=== PATIENT | female | born 1985 | race Caucasian/White ===

== ENCOUNTER 2016-07-26 07:01 | Emergency (ER) | payer MEDICAID, OTHER ==
[~2016-07-26] VITALS: Ht 167.6 cm; Wt 60.3 kg
[~2016-07-26 07:01] MED LIST: ACHYD1T PO; AZIT-21 PO; CEPH500C PO; DEPO SHOT; FLUO20CA42 PO; HYDR1TAB PO; IBP800T PO; PHEN100T17 PO; PHEN100T26 PO; PREN1TAB39 PO; SULF1TAB38 PO; TRAM50TA2 PO; [UNRECOGNIZED DRUG - OTHER] IM; [UNRECOGNIZED DRUG - OTHER] IM
[2016-07-26] MEDS ORDERED: IBUP-1780 PO (07:22)
[2016-07-26 07:29] LABS: BILIRUBIN,URINE NEGATIVE (NEGATIVE); KETONES,URINE NEGATIVE (NEGATIVE); LEUKOCYTE ESTERASE ,URINE 1+ (NEGATIVE); NITRITE,URINE NEGATIVE (NEGATIVE); PH,URINE 6 (5-9); PROTEIN,URINE 2+ (NEGATIVE); UROBILINOGEN,URINE NORMAL (NORMAL)
--- NOTE | 2016-07-26 07:55 | ED Back Pain ---
General Chief Complaint: Back Problems Stated Complaint: KIDNEY PAIN Nursing Triage Note: Pt c/o bilat lower back pain since last night. Pt reports pain is similar to pain she experienced in past w/ kidney infection. Nursing Sepsis Screen: No Definite Risk Source of Information: Patient Exam Limitations: No Limitations History of Present Illness Time Seen by Provider: 07:50 Initial Comments The patient is a 30-year-old white female who presents with complaints of low back pain. This resembles what she previously experienced with a urinary tract infection. She has had a fever however she's had a respiratory infection as well. There appears to be some increased frequency of urination. Timing/Duration: 12-24 Hours Pain/Injury Location: Back Associated Symptoms: fever Allergies and Home Medications Allergies Coded Allergies: sulfamethoxazole (Unverified Allergy, Unknown, 07/26/16) trimethoprim (Unverified Allergy, Unknown, 07/26/16) Home Medications Ibuprofen 800 Mg Tablet, Unknown Dose PO UD PRN for PAIN, (Reported) Constitutional: see HPI EENTM: no symptoms reported Respiratory: cough Cardiovascular: no symptoms reported Gastrointestinal: no symptoms reported Musculoskeletal: no symptoms reported Skin: no symptoms reported Psychiatric/Neurological: No Symptoms Reported Past Tsidzad-Zshmsf-Ndcyur Hx Patient Social History Alcohol Use: Occasionally Uses Recreational Drug Use: No Smoking Status: Current Everyday Smoker Type Used: Cigarettes Recent Foreign Travel: No Contact w/Someone Who Travel: No Recent Infectious Disease Expo: No Recent Hopitalizations: No Immunizations Up To Date Tetanus Booster (TDap): More than 5yrs Seasonal Allergies Seasonal Allergies: No Surgeries HX Surgeries: Yes Surgeries: Appendectomy, Gallbladder Respiratory Hx Respiratory Disorders: No Cardiovascular Hx Cardiac Disorders: No Neurological Hx Neurological Disorders: Yes Neurological Disorders: Headaches /Migraines Reproductive System Hx Reproductive Disorders: No Sexually Transmitted Disease: No HIV/AIDS: No Female Reproductive Disorders: Denies Genitourinary Hx Genitourinary Disorders: Yes Genitourinary Disorders: Kidney Infection Gastrointestinal Hx Gastrointestinal Disorders: No Musculoskeletal Hx Musculoskeletal Disorders: No Endocrine Hx Endocrine Disorders: No HEENT HX ENT Disorders: No Cancer Hx Cancer: No Psychosocial Hx Psychiatric Problems: No Integumentary HX Skin/Integumentary Disorder: No Blood Transfusions Hx Blood Disorders: No Adverse Reaction to a Blood Tr: No Family Medical History Significant Family History: No Pertinent Family Hx Physical Exam Vital Signs Vital Sign - Last 12Hours 07/26/16 07:11 Temp 98.7 Pulse 99 Resp 18 B/P (MAP) 85/57 Pulse Ox 94 O2 Delivery Room Air Capillary Refill : Less Than 3 Seconds General Appearance: Mild Distress HEENT: Normal ENT Inspection Neck: Normal Inspection Cardiovascular: Regular Rate, Rhythm, No Edema, No Gallop, No JVD, No Murmur, Normal Peripheral Pulses Respiratory: Chest Non Tender, Lungs Clear, Normal Breath Sounds, No Accessory Muscle Use, No Respiratory Distress, Accessory Muscle Use Gastrointestinal: Normal Bowel Sounds, No Organomegaly, No Pulsatile Mass, Non Tender, Soft Back: Normal Inspection, No CVA Tenderness, No Vertebral Tenderness, CVA Tenderness (L), CVA Tenderness (R), Other Extremity: Normal Capillary Refill, Normal Inspection, Normal Range of Motion, Non Tender, No Calf Tenderness, No Pedal Edema, Calf Tenderness Neurologic/Psychiatric: Alert, Oriented x3, No Motor/Sensory Deficits, Normal Mood/Affect, lighting director II-XII Norm as Tested, Abnormal Cerebellar Tests Skin: Normal Color, Warm/Dry, Cool, Cyanosis Lymphatic: No Adenopathy, Axilla Node Tender (L), Axilla Node Tender (R) Progress/Results/Core Measures Results/Orders Lab Results Laboratory Tests Test 07/26/16 07:10 Range/Units Urine Color YELLOW Urine Clarity SLIGHTLY CLOUDY Urine pH 6 5-9 Urine Specific [place] 1.015 L 1.016-1.022 Urine Protein 2+ H NEGATIVE Urine Glucose (UA) NEGATIVE NEGATIVE Urine Ketones NEGATIVE NEGATIVE Urine Nitrite NEGATIVE NEGATIVE Urine Bilirubin NEGATIVE NEGATIVE Urine Urobilinogen NORMAL NORMAL MG/DL Urine Leukocyte Esterase 1+ H NEGATIVE Urine RBC (Auto) 2+ H NEGATIVE Urine RBC NONE /HPF Urine WBC 2-5 /HPF Urine Squamous Epithelial Cells 10-25 H /HPF Urine Crystals NONE /LPF Urine Amorphous Sediment FEW NISREEN URATES H /LPF Urine Bacteria MODERATE H /HPF Urine Casts NONE /LPF Urine Mucus NEGATIVE /LPF Urine Culture Indicated YES My Orders Orders - ANDRÉS MORRELL MD Ua Culture If Indicated (07/26/16 07:10) Urine Bedside (07/26/16 07:17) Urine Culture (07/26/16 07:10) Vital Signs/I&O Vital Sign - Last 12Hours 07/26/16 07:11 Temp 98.7 Pulse 99 Resp 18 B/P (MAP) 85/57 Pulse Ox 94 O2 Delivery Room Air Blood Pressure Mean: 66 Point of Care Testing Urine -Bedside: Negative Departure Impression Impression: Primary Impression: urinary tract infection Disposition: 01 HOME, SELF-CARE Condition: Stable/Unchanged Departure-Patient Inst. Decision time for Depature: 07:57 Referrals: [facility] (PCP/Family) Primary Care Physician Add. Discharge Instructions: All discharge instructions reviewed with patient and/or family. Voiced understanding. Plenty of liquids Omnicef as directed Scripts Cefdinir (Cefdinir) 300 Mg Capsule 300 MG PO Twice a day, #14 CAP Prov: ANDRÉS MORRELL MD 07/26/16 ANDRÉS MORRELL MD Jul 26, 2016 07:55
[2016-07-26] MEDS ORDERED: CEFD300C3 PO (07:59)
[2016-07-26 08:06] VITALS: BP 86/57
--- OUTSIDE RECORDS SUMMARY | 2016-08-12 11:36 | XMS REPORT ---
Author ELLA Ward [employer] Address Unknown Phone Unavailable Care Team Providers Care Gore Inserter Name Role Phone ELLA MEDEL CP Unavailable Allergies No Known Allergies Problems Problem Type Condition Code Onset Dates Condition Status Problem Nicotine addiction F17.200 Active Problem Fatigue R53.83 Active Problem Depo-Provera contraceptive status Z30.42 Active Assessment Encounter for Depo-Provera contraception Z30.42 Active Medications Medication Code System Code Instructions Start Date End Date Status Dosage Depo-Provera [facility] [address]-32 150 mg/mL May 25, 2013 inject 150 mg by intramuscular route every 3 months Procedures Procedure Coding System Code Date DEPO PROVERA (150 MG/ML) CPT-4 J1050 May 08, 2015 THER/PROPH/DIAG INJ, SC/IM CPT-4 15860 May 08, 2015 URINE TEST CPT-4 72633 May 08, 2015 Results Name Result Date Reference Range Unit Abnormality Flag TEST, URINE (IN HOUSE) ----RESULTS negative [id number] ----Lot # [id number] ----Control + [id number] ----Exp date 20150508 Summary Purpose eClinicalWorks Submission
--- OUTSIDE RECORDS SUMMARY | 2016-08-12 11:37 | XMS REPORT ---
Author ELLA Ward [facility] eClinical[employer] Address Unknown Phone Unavailable Care Team Providers Care Secretary Board Of Commissioners Name Role Phone ELLA MEDEL CP Unavailable Allergies No Known Allergies Problems Problem Type Condition Code Onset Dates Condition Status Problem Nicotine addiction F17.200 Active Problem Fatigue R53.83 Active Problem Depo-Provera contraceptive status Z30.42 Active Assessment Encounter for Depo-Provera contraception Z30.42 Active Medications No Known Medications Procedures Procedure Coding System Code Date DEPO PROVERA (150 MG/ML) CPT-4 J1050 Jan 01, 2016 THER/PROPH/DIAG INJ, SC/IM CPT-4 57939 Jan 01, 2016 URINE TEST CPT-4 90629 Jan 01, 2016 Results No Known Results Summary Purpose eClinicalWorks Submission
--- OUTSIDE RECORDS SUMMARY | 2016-08-12 11:37 | XMS REPORT ---
Author Author CASANDRA BACON Organization [employer] Address Unknown Phone Unavailable Care Team Providers Care Grocery Team Member Name Role Phone CASANDRA BACON CP Unavailable Allergies, Adverse Reactions, Alerts Substance Reaction Event Type Bactrim Info Not Available Drug Allergy Problems Problem Type Condition Code Onset Dates Condition Status Problem Depo-Provera contraceptive status Z30.42 Active Problem Nicotine addiction F17.200 Active Problem Migraine without aura and without status migrainosus, not intractable G43.009 Active Assessment Migraine without aura and without status migrainosus, not intractable G43.009 Active Problem Fatigue R53.83 Active Assessment Encounter for contraceptive management, unspecified Z30.9 Active Medications Medication Code System Code Instructions Start Date End Date Status Dosage Doxepin HCl [facility] [address]-44 25 MG Orally Once a day Feb 14, 2016 1 capsule at bedtime Ibuprofen [facility] [address]-36 800 MG Orally Three times a day Jan 17, 2016 1 tablet Verapamil HCl [facility] [address]-31 40 mg Orally Three times a day Mar 14, 2016 1 tablet Procedures Procedure Coding System Code Date Office Visit, Est Pt., Level 3 CPT-4 90425 Mar 14, 2016 URINE TEST CPT-4 43665 Mar 14, 2016 Vital Signs Date/Time: Mar 14, 2016 Cardiac Monitoring Heart Rate 70 bpm Weight 153 lbs Height 66 in BMI 24.69 Index Blood Pressure Diastolic 78 mmHg Blood Pressure Systolic 122 mmHg Results Name Result Date Reference Range Unit Abnormality Flag TEST, URINE (IN HOUSE) ----RESULTS negative [id number] ----Lot # [id number] ----Control + [id number] ----Exp date 20160314 Summary Purpose eClinicalWorks Submission
--- OUTSIDE RECORDS SUMMARY | 2016-08-12 11:37 | XMS REPORT ---
Author Author RAUL HITCHCOCK Organization [employer] Address Unknown Phone Unavailable Care Team Providers Care Air Drier Name Role Phone RAUL HITCHCOCK CP Unavailable Allergies, Adverse Reactions, Alerts Substance Reaction Event Type Bactrim Info Not Available Drug Allergy Problems Problem Type Condition Code Onset Dates Condition Status Problem Nicotine addiction F17.200 Active Problem Fatigue R53.83 Active Problem Depo-Provera contraceptive status Z30.42 Active Assessment Migraine with aura and without status migrainosus, not intractable G43.109 Active Medications Medication Code System Code Instructions Start Date End Date Status Dosage Imitrex [facility] [address]-99 50 mg Orally Once a day as needed for headache Dec 17, 2015 1 tablet as needed Depo-Provera [facility] [address]-79 150 MG/ML Intramuscular every 3 months May 25, 2013 inject 150 mg by intramuscular route every 3 months Procedures Procedure Coding System Code Date Office Visit, Est Pt., Level 3 CPT-4 84822 Dec 17, 2015 Vital Signs Date/Time: Dec 17, 2015 Cardiac Monitoring Heart Rate 82 bpm Weight 149.0 lbs Height 66 in BMI 24.05 Index Blood Pressure Diastolic 83 mmHg Blood Pressure Systolic 130 mmHg Results No Known Results Summary Purpose eClinicalWorks Submission
--- OUTSIDE RECORDS SUMMARY | 2016-08-12 11:37 | XMS REPORT ---
Author Author CASANDRA BACON Organization [employer] Address Unknown Phone Unavailable Care Team Providers Care Target Network Analyst Name Role Phone CASANDRA BACON CP Unavailable Allergies No Known Allergies Problems Problem Type Condition Code Onset Dates Condition Status Problem Depo-Provera contraceptive status Z30.42 Active Problem Nicotine addiction F17.200 Active Problem Migraine without aura and without status migrainosus, not intractable G43.009 Active Problem Fatigue R53.83 Active Assessment Encounter for Depo-Provera contraception Z30.42 Active Medications No Known Medications Procedures Procedure Coding System Code Date THER/PROPH/DIAG INJ, SC/IM CPT-4 11007 Mar 20, 2016 URINE TEST CPT-4 78023 Mar 20, 2016 DEPO PROVERA (150 MG/ML) CPT-4 J1050 Mar 20, 2016 Results Name Result Date Reference Range Unit Abnormality Flag TEST, URINE (IN HOUSE) ----RESULTS negative [id number] ----Lot # [id number] ----Control + [id number] ----Exp date [id number] Summary Purpose eClinicalWorks Submission
--- OUTSIDE RECORDS SUMMARY | 2016-08-12 11:37 | XMS REPORT ---
Author Author EDGAR ROMO [facility] eClinicalWorks Address Unknown Phone Unavailable Care Team Providers Care Rn Icu Name Role Phone EDGAR ROMO CP Unavailable Allergies, Adverse Reactions, Alerts Substance Reaction Event Type Bactrim Info Not Available Drug Allergy Problems Problem Type Condition Code Onset Dates Condition Status Problem Nicotine addiction F17.200 Active Problem Fatigue R53.83 Active Problem Depo-Provera contraceptive status Z30.42 Active Assessment Fatigue R53.83 Active Medications Medication Code System Code Instructions Start Date End Date Status Dosage Depo-Provera [facility] [address]-29 150 mg/mL May 25, 2013 inject 150 mg by intramuscular route every 3 months Procedures Procedure Coding System Code Date COMPLETE CBC W/AUTO DIFF WBC CPT-4 78473 Feb 19, 2015 COMPREHEN METABOLIC PANEL CPT-4 41080 Feb 19, 2015 ASSAY THYROID STIM HORMONE CPT-4 04571 Feb 19, 2015 VENIPUNCT, ROUTINE* CPT-4 23518 Feb 19, 2015 ASSAY OF TOTAL TESTOSTERONE CPT-4 44678 Feb 19, 2015 Office Visit, Est Pt., Level 4 CPT-4 00970 Feb 19, 2015 Vital Signs Date/Time: Feb 19, 2015 Temperature 98.8 F Weight 135.2 lbs Height 66 in BMI 21.82 Index Blood Pressure Diastolic 64 mmHg Blood Pressure Systolic 108 mmHg Cardiac Monitoring Heart Rate 80 bpm Results Name Result Date Reference Range Unit Abnormality Flag ROUTINE VENIPUNCTURE Summary Purpose eClinicalWorks Submission
--- OUTSIDE RECORDS SUMMARY | 2016-08-12 11:37 | XMS REPORT ---
Author Author CASANDRA BACON Organization [employer] Address Unknown Phone Unavailable Care Team Providers Care Nuclear Unit Operator Name Role Phone CASANDRA BACON CP Unavailable Allergies, Adverse Reactions, Alerts Substance Reaction Event Type Bactrim Info Not Available Drug Allergy Problems Problem Type Condition Code Onset Dates Condition Status Problem Depo-Provera contraceptive status Z30.42 Active Problem Nicotine addiction F17.200 Active Problem Migraine without aura and without status migrainosus, not intractable G43.009 Active Assessment Nipple discharge N64.52 Active Problem Fatigue R53.83 Active Assessment Migraine without aura and without status migrainosus, not intractable G43.009 Active Medications Medication Code System Code Instructions Start Date End Date Status Dosage Ibuprofen [facility] [address]-91 800 MG Orally Three times a day Jan 17, 2016 1 tablet Doxepin HCl [facility] [address]-46 25 MG Orally Once a day Feb 14, 2016 1 capsule at bedtime Depo-Provera [facility] [address]-59 150 MG/ML Intramuscular every 3 months May 25, 2013 inject 150 mg by intramuscular route every 3 months Procedures Procedure Coding System Code Date VENIPUNCT, ROUTINE* CPT-4 69420 Feb 14, 2016 Office Visit, Est Pt., Level 3 CPT-4 57806 Feb 14, 2016 LAB NOT BILLED BY [facility] CPT-4 NOBLL Feb 14, 2016 Vital Signs Date/Time: Feb 14, 2016 Cardiac Monitoring Heart Rate 76 bpm Weight 148.0 lbs Height 66 in BMI 23.89 Index Blood Pressure Diastolic 76 mmHg Blood Pressure Systolic 128 mmHg Results Name Result Date Reference Range Unit Abnormality Flag PROLACTIN ----Prolactin 11.6 [id number] 4.8-23.3 ng/mL FSH, SERUM ----FSH 9.1 [id number] mIU/mL ROUTINE VENIPUNCTURE LH ----LH 11.0 [id number] mIU/mL Summary Purpose eClinicalWorks Submission
--- OUTSIDE RECORDS SUMMARY | 2016-08-12 11:37 | XMS REPORT ---
Author Author BACONCASANDRA Hanson Organization [facility] Address [address] [place] [address] Care Team Providers Care Bench Mover Name Role Phone BACONCASANDRA Hanson Unavailable PROBLEMS Type Condition ICD9-CM Code OOC12-GP Code Onset Dates Condition Status SNOMED Code Problem Depo-Provera contraceptive status Z30.42 Active 999962121 Problem Nicotine addiction F17.200 Active 97693222 Assessment Migraine without aura and without status migrainosus, not intractable G43.009 Jan, Active 089004023 Problem Fatigue R53.83 Active 57150938 Assessment Routine health maintenance Z00.00 Jan, Active 628686268 ALLERGIES Substance Reaction Event Type Date Status Bactrim Unknown Drug Allergy Jan, Active SOCIAL HISTORY No smoking Hx information available PLAN OF CARE VITAL SIGNS Height 66 in 2016-01-17 Weight 145.1 lbs 2016-01-17 Heart Rate 78 bpm 2016-01-17 Respiratory Rate 16 2016-01-17 BMI 23.42 kg/m2 2016-01-17 Blood pressure systolic 132 mmHg 2016-01-17 Blood pressure diastolic 78 mmHg 2016-01-17 MEDICATIONS Medication Instructions Dosage Frequency Start Date End Date Duration Status Propranolol HCl 10 mg Orally Twice a day 1 tablet 12h Jan, 30 day(s) Active Depo-Provera 150 MG/ML Intramuscular every 3 months inject 150 mg by intramuscular route every 3 months May, Active Ibuprofen 800 MG Orally Three times a day 1 tablet 8h Jan, Active RESULTS Name Result Date Reference Range THYROID ANALYZER 2016-01-17 TSH 1.550 0.450-4.500 A1C 2016-01-17 Hemoglobin A1c 5.6 4.8-5.6 CBC 2016-01-17 WBC 7.1 3.4-10.8 RBC 4.75 3.77-5.28 Hemoglobin 14.8 11.1-15.9 Hematocrit 44.1 34.0-46.6 MCV 93 79-97 MCH 31.2 26.6-33.0 MCHC 33.6 31.5-35.7 RDW 13.1 12.3-15.4 Platelets 271 150-379 Neutrophils 54 Lymphs 37 Monocytes 8 Eos 1 Basos 0 Neutrophils (Absolute) 3.8 1.4-7.0 Lymphs (Absolute) 2.7 0.7-3.1 Monocytes(Absolute) 0.6 0.1-0.9 Eos (Absolute) 0.1 0.0-0.4 Baso (Absolute) 0.0 0.0-0.2 Immature Granulocytes 0 Immature Grans (Abs) 0.0 0.0-0.1 LIPID PANEL 2016-01-17 Cholesterol, Total 186 100-199 Triglycerides 134 0-149 HDL Cholesterol 32 >39 VLDL Cholesterol Jaden 27 5-40 LDL Cholesterol Calc 127 0-99 CMP 2016-01-17 Glucose, Serum 91 65-99 BUN 9 6-20 Creatinine, Serum 1.05 0.57-1.00 eGFR If NonAfricn Am 71 >59 eGFR If Africn Am 82 >59 BUN/Creatinine Ratio 9 8-20 Sodium, Serum 141 134-144 Potassium, Serum 4.8 3.5-5.2 Chloride, Serum 103 97-108 Carbon Dioxide, Total 21 18-29 Calcium, Serum 9.6 8.7-10.2 Protein, Total, Serum 7.3 6.0-8.5 Albumin, Serum 4.9 3.5-5.5 Globulin, Total 2.4 1.5-4.5 A/G Ratio 2.0 1.1-2.5 Bilirubin, Total 0.5 0.0-1.2 Alkaline Phosphatase, S 77 39-117 AST (SGOT) 20 0-40 ALT (SGPT) 14 0-32 PROCEDURES Procedure Date Ordered Related Diagnosis Body Site GLYCATED HEMOGLOBIN TEST Jan 17, 2016 [facility] Jan 17, 2016 VENIPUNCT, ROUTINE* Jan 17, 2016 Office Visit, Est Pt., Level 3 Jan 17, 2016 IMMUNIZATIONS No Known Immunizations
== END 2016-07-26 08:06 | disposition home or self-care (01) ==
LOC: EDUNIT# 07:01 → ER 07:03
DX: N39.0 Urinary tract infection, site not specified (principal); F17.210 Nicotine dependence, cigarettes, uncomplicated
CPT/HCPCS: 81000; 84703; 87088; 99282

== ENCOUNTER → 2017-02-25 | Outpatient (CLI) | payer MEDICAID, OTHER ==
[~2017-02-25] MED LIST changes: +CEFD300C3 PO; +IBUP-1780 PO
--- NOTE | 2017-02-25 14:57 | Diagnostic Imaging Report ---
EXAMINATION: Left breast diagnostic mammogram with tomography. The current study was also evaluated with a Computer Aided Detection (CAD) system. COMPARISON: No prior studies are available for comparison. INDICATION: Lateral left breast masses. FINDINGS: The left breast demonstrates heterogeneously dense parenchyma which may decrease mammographic sensitivity. Palpable lumps are marked in the outer aspect of the left breast with no definitive underlying lesion seen. No suspicious calcification, mass, or architectural distortion is noted. IMPRESSION: Dense breast parenchyma with no suspicious lesion identified. An ultrasound evaluation is pending. ACR BI-RADS Category 0: Incomplete. (Needs additional imaging evaluation). Result letter will be mailed to the patient. Note: At least 10% of breast cancer is not imaged by mammography. Dictated by: Dictated on workstation # [id number]
--- NOTE | 2017-02-25 20:06 | Diagnostic Imaging Report ---
EXAMINATION: Left breast ultrasound. INDICATION: Left breast lump. FINDINGS: The four quadrants and retroareolar region of the left breast was scanned with no underlying abnormality seen. IMPRESSION: Negative study. Clinical followup of the palpable area is recommended. ACR BI-RADS Category 1: Negative. Result letter will be mailed to the patient. Note: At least 10% of breast cancer is not imaged by mammography. Dictated by: Dictated on workstation # [id number]
== END ==
LOC: RAD 14:15
PROVIDERS: ATTEND Nurse Practitioner Family
DX: N63.20 Unspecified lump in the left breast, unspecified quadrant (principal)
CPT/HCPCS: 76641

== ENCOUNTER 2020-09-25 21:10 | Emergency (ER) | payer OTHER ==
[~2020-09-25] VITALS: Ht 167.7 cm; Wt 59.0 kg
[2020-09-25 21:17] VITALS: BP 135/93
[2020-09-25] MEDS ORDERED: DOXY100T2 PO (21:27)
--- NOTE | 2020-09-25 21:27 | ED Integumentary General ---
General Stated Complaint: BI LAT LYMPH NODE LUMPS, R BREAST LUMP Source: patient Exam Limitations: no limitations History of Present Illness Date Seen by Provider: September 25, 2020 Time Seen by Provider: 21:22 Initial Comments To ER with reports of bilateral axillary lymphadenopathy as well as a right breast red spot. Symptoms began this morning. No fevers or chills. She has increasing pain throughout both axilla. No history of this. Timing/Duration: this morning Severity: moderate Location: none Associated Symptoms: denies symptoms Allergies and Home Medications Allergies Coded Allergies: sulfamethoxazole (Unverified Allergy, Unknown, 07/26/16) trimethoprim (Unverified Allergy, Unknown, 07/26/16) Home Medications Cefdinir 300 Mg Capsule, 300 MG PO Twice a day Prescribed by: ANDRÉS MORRELL on 07/26/16 0759 Ibuprofen 800 Mg Tablet, Unknown Dose PO UD PRN for PAIN, (Reported) Patient Home Medication List Home Medication List Reviewed: Yes Review of Systems Review of Systems Constitutional: see HPI; No chills, No fever EENTM: see HPI Respiratory: no symptoms reported Cardiovascular: no symptoms reported Genitourinary: no symptoms reported Musculoskeletal: no symptoms reported Skin: see HPI Psychiatric/Neurological: No Symptoms Reported Endocrine: No Symptoms Reported Hematologic/Lymphatic: No Symptoms Reported Past Xpkogrp-Imnnpd-Lpkwgi Hx Patient Social History Type Used: Cigarettes Recent Hopitalizations: No Immunizations Up To Date Tetanus Booster (TDap): More than 5yrs Seasonal Allergies Seasonal Allergies: No Past Medical History Appendectomy, Gallbladder Headaches /Migraines Reproductive Disorders: No Female Reproductive Disorders: Denies Sexually Transmitted Disease: No HIV/AIDS: No Kidney Infection Adverse Reaction/Blood Tranf: No Family Medical History No Pertinent Family Hx Physical Exam Vital Signs Capillary Refill : General Appearance: WD/WN, no apparent distress Respiratory: no respiratory distress, no accessory muscle use Gastrointestinal: normal bowel sounds, non tender Neurologic/Psychiatric: alert, normal mood/affect, oriented x 3 Skin: normal color, warm/dry Skin Problem Character: other (There are a few circular superficial erythematous patches to each axilla as well as the superior lateral aspect of the right breast. She shaves both axilla. Suspect this is a little cellulitis/superficial skin infection with secondary reactive lymphadenopathy. The quarter sized area to the upper outer aspect of the right breast is tender and erythematous and just showed up this morning.) Progress/Results/Core Measures Results/Orders My Orders Orders - LUANA MULTANI APRN Cbc With Automated Diff (09/25/20 21:16) Rocephin 1 Gm Iv (1x Dose) (09/25/20 21:30) Ketorolac Injection (Toradol Injection) (09/25/20 21:30) Ed Iv/Invasive Line Start (09/25/20 21:21) Departure Impression Primary Impression: Folliculitis of both axillae Disposition: HOME, SELF-CARE Condition: Stable Departure-Patient Inst. Decision time for Depature: 21:26 Referrals: NO,LOCAL PHYSICIAN (PCP/Family) Primary Care Physician Patient Instructions: Folliculitis Add. Discharge Instructions: 1. Warm compresses to each armpit. Tylenol and ibuprofen together for pain control. Antibiotics as directed. Follow-up with your doctor next week for recheck. Scripts Doxycycline Hyclate (Doxycycline Hyclate) 100 Mg Tablet 100 MG PO BID, #14 TAB 0 Refills Prov: LUANA MULTANI APRN 09/25/20 LUANA MULTANI APRN September 25, 2020 21:27
[2020-09-25 21:29] LABS: BASOPHILS % (AUTO) 0 % (0-10); EOSINOPHILS % (AUTO) 0 % (0-10); HEMATOCRIT 40 % (35-52); HEMOGLOBIN 13.3 g/dL (11.5-16.0); LYMPHOCYTES # (AUTO) 2.8 10^3/uL (1.0-4.0); LYMPHOCYTES % (AUTO) 18 % (12-44); MEAN CORPUSCULAR HEMOGLOBIN 31 pg (25-34); MEAN CORPUSCULAR HGB CONC 33 g/dL (32-36); MEAN CORPUSCULAR VOLUME 93 fL (80-99); MEAN PLATELET VOLUME 9.4 fL (9.0-12.2); MONOCYTES # (AUTO) 1.4 10^3/uL (0.0-1.0); MONOCYTES % (AUTO) 9 % (0-12); NEUTROPHILS % (AUTO) 72 % (42-75); PLATELET COUNT 256 10^3/uL (130-400); WHITE BLOOD COUNT 15.4 10^3/uL (4.3-11.0)
[2020-09-25] MEDS ORDERED: cefTRIAXone FOR IV USE 1,000 MG in WATER (STERILE) FOR INJECTION 10 ML IV ONE (21:30)
[2020-09-25] MEDS ORDERED: KETOROLAC 30 MG/ML VIAL IVP ONE (21:30)
[2020-09-25] MEDS ORDERED: DOXYCYCLINE 100 MG (VIBRAMYCIN) TABLET PO SCH (21:30)
[2020-09-25 22:10] LABS: LYMPHOCYTES % (MANUAL) 19 %; MONOCYTES % (MANUAL) 6 %; NEUTROPHILS % (MANUAL) 75 %; RBC MORPH NORMAL
== END 2020-09-25 21:48 | disposition home or self-care (01) ==
LOC: EDUNIT# 21:10 → ER 21:13
DX: L73.9 Follicular disorder, unspecified (principal); Z88.1 Allergy status to other antibiotic agents
CPT/HCPCS: 36415; 85007; 85027

== ENCOUNTER → 2020-10-16 | Outpatient (CLI) | payer OTHER ==
[~2020-10-16] MED LIST changes: +DOXY100T2 PO
--- NOTE | 2020-10-16 14:01 | Diagnostic Imaging Report ---
INDICATION: Right breast lump. COMPARISON: No prior mammograms are available for comparison. TECHNIQUE: 2D and 3D bilateral diagnostic mammography was performed with CAD. FINDINGS: Both breasts are heterogeneously dense, limiting the sensitivity of mammography. A BB marker was placed at the area of palpable abnormality in the upper and outer aspect of the right breast. No underlying mass is seen. There is an intramammary lymph node in the right axillary tail. No mass or malignant appearing microcalcifications are seen. The axillae are unremarkable. IMPRESSION: No mammographic features suspicious for malignancy are identified. Even so, directed sonographic interrogation of the area of palpable abnormality in the right breast is recommended and will be performed today. ACR BI-RADS Category 0: Incomplete. (Needs additional imaging evaluation). Result letter will be mailed to the patient. Note: At least 10% of breast cancer is not imaged by mammography. Dictated by: Dictated on workstation # [id number]
--- NOTE | 2020-10-16 20:02 | Diagnostic Imaging Report ---
INDICATION: Right breast lump. Sonographic interrogation of the area of lump in the upper-outer right breast was performed. No sonographic abnormality is detected. No solid or cystic mass is detected. IMPRESSION: BI-RADS Category 1 No sonographic abnormality is detected. Continued close clinical and self breast exams are recommended to confirm stability of the area of palpable abnormality. ACR BI-RADS Category 1: Negative. Result letter will be mailed to the patient. Note: At least 10% of breast cancer is not imaged by mammography. Dictated by: Dictated on workstation # [id number]
== END ==
LOC: RAD 13:01
PROVIDERS: ATTEND Nurse Practitioner Family
DX: N63.10 Unspecified lump in the right breast, unspecified quadrant (principal)
CPT/HCPCS: 76642; 77066; G0279; 77062